=== PATIENT | male | born 2005 | race Caucasian/White ===

== ENCOUNTER 2024-03-06 10:22 | Emergency (ER) | payer MEDICAID, OTHER, SELFPAY ==
[2024-03-06] VITALS (7 sets, daily range): BP systolic 92–117; BP diastolic 42–67; BMI 20.9
--- NOTE | 2024-03-06 10:31 | ED.GENMED ---
History of Present Illness
<Angelina Hurley, BROWNING PROCESSOR - Last Filed: 03/06/24 16:35>
General
Chief Complaint: Seizure
Source: patient and ambulance crew
Exam Limitations: none
Time Seen by Provider: 03/06/24 10:22
Nursing documentation reviewed up to this point in time: agreed with
History of Present Illness
History of Present Illness:
18 yo male with h/o seizures on Xcopri (Cenobramate) 200 mg daily admits he hasn't taken it in about 5 days due to being so busy working and forgetting to take it. Parents went to wake him about an hour ago and found him seizing. It is reported pt
typically seizes at nighttime during sleep. Pt is alert and oriented on arrival. Denies pain.
Parents arrive. Mom states they have never witnessed a seizure, they have found him post ictal, unresponsive and snoring several times and evaluated by [facility], placed on Xcopri and they only had one episode of post ictal behavior since,
when he skipped a dose of his Xcopri. This a.m. is the first time his seizure was witnessed. Pt admitted to parents he missed about 5 days of the medication. They are surprised and upset about it.
Past History
<Angelina Hurley, BROWNING PROCESSOR - Last Filed: 03/06/24 16:35>
Past History
ED Past Medical History: Seizures
ED Past Surgical History: None
Social History
Tobacco: Non-smoker
Alcohol: Occasional
Drug: None
Personal: Single
Living: with family
Employment: Employed
Review of Systems
<Angelina Hurley, BROWNING PROCESSOR - Last Filed: 03/06/24 16:35>
Review of Systems
Allergies reviewed?: Yes
All Other Systems: ROS reviewed and negative except as documented in HPI and ROS
Constitutional: Denies fever
EENT: Denies sore throat
Respiratory: Denies cough or trouble breathing
Cardiac: Denies chest pain
ABD/GI: Denies abdominal pain or nausea
Musculoskeletal: Reports no symptoms
Skin: Reports no symptoms
Neurological: Reports no symptoms
Phy Exam
<Angelina Hurley BROWNING PROCESSOR - Last Filed: 03/06/24 16:35>
Physical Exam
Physical Exam:
GENERAL: No acute distress. A&Ox3.
CONSTITUTIONAL: Afebrile.
EYES: PERRL, conjunctivae normal
Neck: Supple
ENMT: moist mucus membranes, Pharynx nl, no oral trauma
RESPIRATORY: Regular respirations, nonlabored, lungs clear.
CARDIOVASCULAR: Regular rate and rhythm, no murmurs, no rubs.
GI: Soft, nontender, normal BS
MUSCULOSKELETAL: Moves with ease. Well perfused.
SKIN: Warm, dry, pink
PSYCH: Normal mood and affect. Well kept, interactive and appropriate
NEUROLOGIC: Awake, alert and oriented. No focal neurological deficits
Course
<Angelina Hurley, BROWNING PROCESSOR - Last Filed: 03/06/24 16:35>
Orders/Labs/Results
Orders:
Orders
03/06/24 10:26
EKG [Electrocardiogram (*1)] Urgent
Reason for Study: Other
Other Reason for Exam: s/p seizure
03/06/24 10:27
EKG- Treatment ONCE
03/06/24 10:36
CMP [Comprehensive Metabolic Panel] Urgent
Complete Blood Count/With Diff Urgent
03/06/24 10:49
0.9% Sodium Chloride 1000 ml [Nss] 1,000 ml IV BOLUS
03/06/24 11:18
CR Chest - 2 Views Urgent
Comment:
Reason For Exam: cough, fever
Abnormal Lab Results
03/06/24
10:36
WBC 11.2 H 10^3/uL
(4.8-10.8)
RBC 4.61 L 10^6/uL
(4.70-6.10)
Abs Immat Gran (auto) 0.1 H 10^3/uL
(0-0.05)
Absolute Neuts (auto) 9.5 H 10^3/uL
(1.4-6.5)
Absolute Lymphs (auto) 0.9 L 10^3/uL
(1.2-3.4)
Absolute Monos (auto) 0.7 H 10^3/uL
(0.1-0.6)
Neutrophils % 84.6 H %
(42.2-75.2)
Lymphocytes % 8.1 L %
(20.5-51.1)
Carbon Dioxide 21 L mmol/L
(22-30)
Glucose 110 H mg/dl
(70-99)
03/06/24 10:36
03/06/24 10:36
Vital Signs
Initial and Last Documented VS:
Initial Vital Signs
Temp Pulse Resp BP Pulse Ox
99.7 F 101 20 116/67 95
03/06/24 10:27 03/06/24 10:27 03/06/24 10:27 03/06/24 10:27 03/06/24 10:27
Last Documented Vital Signs
Temp Pulse Resp BP Pulse Ox
99.2 F 87 16 117/53 98
03/06/24 14:08 03/06/24 14:08 03/06/24 14:08 03/06/24 14:08 03/06/24 14:08
<Pablo Ribera MD - Last Filed: 03/06/24 11:44>
Orders/Labs/Results
Orders:
Orders
03/06/24 10:26
EKG [Electrocardiogram (*1)] Urgent
Reason for Study: Other
Other Reason for Exam: s/p seizure
03/06/24 10:27
EKG- Treatment ONCE
03/06/24 10:36
CMP [Comprehensive Metabolic Panel] Urgent
Complete Blood Count/With Diff Urgent
03/06/24 10:49
0.9% Sodium Chloride 1000 ml [Nss] 1,000 ml IV BOLUS
03/06/24 11:18
CR Chest - 2 Views Urgent
Comment:
Reason For Exam: cough, fever
Abnormal Lab Results
03/06/24
10:36
WBC 11.2 H 10^3/uL
(4.8-10.8)
RBC 4.61 L 10^6/uL
(4.70-6.10)
Abs Immat Gran (auto) 0.1 H 10^3/uL
(0-0.05)
Absolute Neuts (auto) 9.5 H 10^3/uL
(1.4-6.5)
Absolute Lymphs (auto) 0.9 L 10^3/uL
(1.2-3.4)
Absolute Monos (auto) 0.7 H 10^3/uL
(0.1-0.6)
Neutrophils % 84.6 H %
(42.2-75.2)
Lymphocytes % 8.1 L %
(20.5-51.1)
Carbon Dioxide 21 L mmol/L
(22-30)
Glucose 110 H mg/dl
(70-99)
03/06/24 10:36
03/06/24 10:36
Vital Signs
Initial and Last Documented VS:
Initial Vital Signs
Temp Pulse Resp BP Pulse Ox
99.7 F 101 20 116/67 95
03/06/24 10:27 03/06/24 10:27 03/06/24 10:27 03/06/24 10:27 03/06/24 10:27
Last Documented Vital Signs
Temp Pulse Resp BP Pulse Ox
99.2 F 87 16 117/53 98
03/06/24 14:08 03/06/24 14:08 03/06/24 14:08 03/06/24 14:08 03/06/24 14:08
<Angelina Hurley BROWNING PROCESSOR - Last Filed: 03/06/24 16:35>
MDM/Problems Addressed
Differential Diagnosis Includes:
breakthrough seizure, noncompliance with medication
MDM/Problems Addressed:
18 yo male with h/o seizures on Xcopri (Cenobramate) 200 mg daily admits he hasn't taken it in about 5 days due to being so busy working and forgetting to take it. Parents went to wake him about an hour ago and found him seizing. It is reported pt
typically seizes at nighttime during sleep. Pt is alert and oriented on arrival. Denies pain.
NAD, afebrile, AA&O
EKG sinus tach HR 100
11:15 a.m.
Dad went home and got pt's med. Pt given Xcopri 200 mg po
Parents state pt has had intermittent cough since seizure. Temp 99.7. Will obtain CXR to ck for PNA, may have aspirated (not likely to show up on xray)
12:20 PM:
Chest x-ray NAD
No seizure activity
Contacted Neurologist at [place]: Dr. Dameon Vilchis and informed of today's visit. Left message with sales leader for [facility] Taylor to call me. Dr. Vilchis is 'not in the office today.'
1:45 p.m.
No call back from Neurology office
Mom will continue to try to reach them
Pt stable for discharge.
Ambulated out with normal gait
2:45 p.m.
Claudia from Dr. Vilchis's office called back. She will call mom and go over medication use and follow up.
<Angelina Hurley BROWNING PROCESSOR - Last Filed: 03/06/24 16:35>
*Critical Care Note
Total Time (30-74mins, 75-104mins- exclusive of procedures): Not Applicable
ED Attending Note
<Angelina Hurley NP - Last Filed: 03/06/24 16:35>
-
Portions of this chart may have been created with voice recognition software.� Occasional wrong word or��sound alike� substitutions may have occurred due to the inherent limitations of voice recognition software.
<Pablo Ribera MD - Last Filed: 03/06/24 11:44>
ED Attending Note
Patient seen and examined by attending physician: Yes
I performed the substantive portion of visit, reviewed & personally made and approve the management plan that is documented in note by myself or YAZ.: Yes
ED Attending Note:
Witnessed seizure by dad. Appeared grand mal. Lasted maybe a minute. No trauma. Patient has not taken his seizure medication for 5 days. History of seizures in the past. Currently complaining of mild headache. No other specific complaints.
Slight cough with deep breathing
On exam patient is nontoxic no distress. Lungs are clear and equal. Heart regular rate and rhythm. Abdomen benign. No trauma. Scalp is negative. Neck is nontender. He is nonfocal. He is fully awake alert and oriented.
Impression: Seizure likely secondary to medication noncompliance. No indication for radiologic testing. EKG shows no QT interval issues. Labs are stable. We will contact his neurologist for completeness. However doubt change in dosing given his
noncompliance. Stressed compliance and follow-up.
Discharge Plan
Departure
Patient Disposition: Home (Routine Discharge)
Date of Disposition: 03/06/24
Time of Disposition: 13:41
Patient with high blood pressure during this ER visit?: No
Condition: Good
Discharge Problem:
Seizure
Instructions: Seizures, Adult (DC)
Prescriptions:
No Action
levetiracetam [Keppra] 500 mg tablet
500 mg PO BID Qty: 60 0RF
Referrals:
Dameon Vilchis [Other] - Call in 1-3 days for appt
UNKNOWN - PT DOES,NOT KNOW [Unknown Provider] -
Activity Restrictions/Additional Instructions:
As we discussed, be sure to take your antiseizure medicine daily as directed
Inform your neurologist of today's visit.
Interventions
Interventions:
*Risk Screen - Suicide Last Done: 03/06/24 10:27
*General Assessment Last Done: 03/06/24 10:37
*Neglect/Abuse Screening Last Done: 03/06/24 10:27
ED- Fall Risk Assessment Last Done: 03/06/24 10:37
*ED COVID-19 Vaccine History Last Done: 03/06/24 10:27
*Nursing Disposition Last Done: 03/06/24 14:08
ED- Cardiac Assessment Last Done: 03/06/24 10:37
ED- Neurological Assessment Last Done: 03/06/24 10:37
ED- Pulmonary Assessment Last Done: 03/06/24 10:37
Discharge Date and Time
Discharge Date/Time: 03/06/24 14:14
Print Language: [place]
[2024-03-06 10:49] LABS: % Basophils 0.4 % (0-2); % Eosinophils 0.4 % (0-6); % Immature Granulocytes 0.4 % (0-0.5); % Lymphocytes 8.1 % (20.5-51.1); % Monocytes 6.1 % (1.7-9.3); % Neutrophils 84.6 % (42.2-75.2); Absolute Immature Granulocytes 0.1 10^3/uL (0-0.05); Absolute Lymphocytes 0.9 10^3/uL (1.2-3.4); Absolute Monocytes 0.7 10^3/uL (0.1-0.6); Absolute Neutrophils 9.5 10^3/uL (1.4-6.5); Mean Corpuscular Hgb 30.4 pg (27.0-31.0); Mean Corpuscular Volume 86.8 fL (80.0-94.0); Mean Platelet Volume 9.8 fL (7.4-10.4); Nucleated Red Blood Cells % 0 % (-); Platelet Count 198 10^3/uL (130-400); Red Blood Cell Count 4.61 10^6/uL (4.70-6.10); Red Cell Dist. Width 12.5 % (11.5-14.5); White Blood Cell Count 11.2 10^3/uL (4.8-10.8)
[2024-03-06 11:00] LABS: AST (SGOT) 36 U/L (17-59); Albumin 4.9 g/dl (3.5-5.0); Alkaline Phosphatase 84 U/L (38-126); Blood Urea Nitrogen 15 mg/dl (9-20); Calcium 10.1 mg/dl (8.4-10.2); Carbon Dioxide 21 mmol/L (22-30); Chloride 105 mmol/L (98-107); Estimated Creatinine Clearance > 125 ml/min; Glucose 110 mg/dl (70-99); Potassium 4.5 mmol/L (3.5-5.1); Sodium 138 mmol/L (135-145); Total Bilirubin 0.6 mg/dl (0.2-1.3); Total Protein 7.2 g/dl (6.3-8.2); eGFR > 60.00
[2024-03-06] MEDS: NSS 1000 IV (11:24)
[2024-03-06 11:26] LABS: ALT (SGPT) 34 U/L (0-50)
--- NOTE | 2024-03-06 14:07 | EDRN ---
Discharge instructions reviewed with patient and his mother. Verbalized understanding.
== END 2024-03-06 14:14 | disposition home or self-care (01) ==
LOC: EMR 10:22
PROVIDERS: Registered Nurse; EMERGENCY PHYSICIAN Emergency Medicine; FAMILY PHYSICIAN Internal Medicine
DX: G43.909 Migraine, unspecified, not intractable, without status migrainosus (principal); R07.89 Other chest pain; Z91.199 Patient's noncompliance with other medical treatment and regimen due to unspecified reason
CPT/HCPCS: 99283; 96360; 71046; 80053; 85025; 93005

== ENCOUNTER → 2024-11-11 08:26 | Outpatient (REF) | payer OTHER, SELFPAY | LOC: PAVMRI 08:26 | PROVIDERS: ATTENDING PHYSICIAN Orthopaedic Surgery Adult Reconstructive Orthopaedic Surgery | DX: M25.062 Hemarthrosis, left knee (principal); S83.8X2A Sprain of other specified parts of left knee, initial encounter; S83.92XA Sprain of unspecified site of left knee, initial encounter | CPT/HCPCS: 73721 ==